=== PATIENT | female | born 1980 | race American Indian/Alaskan Native ===

== ENCOUNTER 2016-07-30 13:26 | Emergency (ER) | payer SELFPAY ==
[2016-07-30 14:34] LABS: Hematocrit 39.3 % (30.3-42.9); Hemoglobin 12.7 gm/dl (10.1-14.3); Mean Corpuscular HGB Conc 32 % (30-34); Mean Corpuscular Hemoglobin 30 pg (28-32); Mean Corpuscular Volume 91 fl (79-97); Platelet Count 323 K/mm3 (140-440); Red Cell Distribution Width 14.2 % (13.2-15.2); White Blood Count 11.7 K/mm3 (4.5-11.0)
[2016-07-30 14:42] LABS: Anion Gap 16 mmol/L; Blood Urea Nitrogen 14 mg/dL (7-17); Calcium 8.7 mg/dL (8.4-10.2); Carbon Dioxide 26 mmol/L (22-30); Chloride 99.2 mmol/L (98-107); Glucose 92 mg/dL (65-100); Potassium 3.2 mmol/L (3.6-5.0); Sodium 138 mmol/L (137-145)
[2016-07-30 15:26] LABS: Bacteria,Urine 1+ /HPF (Negative); Bilirubin,Urine NEG (Negative); Blood,Urine MOD (Negative); Ketones,Urine NEG (Negative); Leukocyte Esterase,Urine NEG (Negative); Mucus,Urine FEW /HPF; Nitrite,Urine NEG (Negative); Urobilinogen,Urine < 2.0 mg/dL (<2.0); WBC,Urine < 1.0 /HPF (0.0-6.0)
[2016-07-30] MEDS ORDERED: CATAPRES PO ONE (17:20)
[2016-07-30] MEDS ORDERED: FLEXERIL PO ONE (17:40)
[2016-07-30] MEDS ORDERED: TORADOL IM ONE (17:40)
[2016-07-30] MEDS ORDERED: NORCO 7.5/325 PO ONE (17:40)
--- NOTE | 2016-07-30 18:39 | Emergency Department Report ---
<FLOR RODRIGUEZ - Last Filed: 07/30/16 19:07> ED Lower Extremity HPI - General Chief Complaint: Extremity Injury, Lower Stated Complaint: R Knee Pain - Related Data Home Medications Medication Instructions Recorded Confirmed Last Taken Valtrex 1 tab PO QDAY PRN 05/23/14 05/23/14 05/22/14 10:30 Previous Rx's Medication Instructions Recorded Last Taken Type Hydrochlorothiazide 25 mg PO DAILY #30 tablet 05/23/14 Unknown Rx Ketorolac [Toradol] 10 mg PO Q6H PRN #20 tablet 07/30/16 Unknown Rx methOCARBAMOL [Robaxin TAB] 500 mg PO BID #20 tab 07/30/16 Unknown Rx Allergies Allergy/AdvReac Type Severity Reaction Status Date / Time No Known Allergies Allergy Verified 12/25/14 07:27 ED Review of Systems ROS: Stated complaint: R Knee Pain Other details as noted in HPI ED Past Medical Hx - Medications Home Medications: Home Medications Medication Instructions Recorded Confirmed Last Taken Type Hydrochlorothiazide 25 mg PO DAILY #30 tablet 05/23/14 Unknown Rx Valtrex 1 tab PO QDAY PRN 05/23/14 05/23/14 05/22/14 10:30 History Ketorolac [Toradol] 10 mg PO Q6H PRN #20 tablet 07/30/16 Unknown Rx methOCARBAMOL [Robaxin TAB] 500 mg PO BID #20 tab 07/30/16 Unknown Rx ED Course Vital Signs 07/30/16 07/30/16 07/30/16 14:06 18:05 19:14 Temperature 98.4 F Pulse Rate 92 H 121 H 82 Respiratory 18 Rate Blood Pressure 174/123 192/121 Blood Pressure 152/95 [Left] O2 Sat by Pulse 100 Oximetry ED Lower Extremity MDM - Lab Data Result diagrams: 07/30/16 14:12 07/30/16 14:12 Critical care attestation.: If time is entered above; I have spent that time in minutes in the direct care of this critically ill patient, excluding procedure time. ED Disposition Clinical Impression: Joint effusion of knee Disposition: DISCHARGED TO HOME OR SELFCARE Condition: Stable Instructions: Knee Effusion (ED) Prescriptions: Ketorolac [Toradol] 10 mg PO Q6H PRN #20 tablet PRN Reason: Pain methOCARBAMOL [Robaxin TAB] 500 mg PO BID #20 tab Referrals: PRIMARY CARE, [Primary Care Provider] - 3-5 Days EDWARD JANE MD [Staff Physician] - 3-5 Days ANTHONY SIDDIQUI MD [Staff Physician] - 3-5 Days <ANGELIQUE LOCK - Last Filed: 07/30/16 19:29> ED Lower Extremity HPI - General Source: patient Mode of arrival: Ambulatory Limitations: No Limitations - History of Present Illness Initial Comments: 36 year old female presents to ED with right knee pain x2-3 days. patient states she was exercising and began having knee pain. patient is stable, neurologically intact and in no acute distress. patient is ambulatory. pedal pulses intact bilaterally and normal sensory exam bilaterally in lower extremeties. MD Complaint: knee injury -: Sudden Injury: Knee: Right Severity: mild Improves With: rest Worsens With: movement Context: other (exercise) Associated Symptoms: snap/pop sensation, swelling, ambulatory. denies: numbness , tingling, unable to bear weight ED Review of Systems Constitutional: denies: chills, fever Eyes: denies: eye pain, eye discharge, vision change ENT: denies: ear pain, throat pain Respiratory: denies: cough, shortness of breath, wheezing Cardiovascular: denies: chest pain, palpitations Endocrine: no symptoms reported Gastrointestinal: denies: abdominal pain, nausea, diarrhea Genitourinary: denies: urgency, dysuria, discharge Musculoskeletal: joint swelling, arthralgia. denies: back pain Skin: denies: rash, lesions Neurological: denies: headache, weakness, paresthesias Psychiatric: denies: anxiety, depression Hematological/Lymphatic: denies: easy bleeding, easy bruising ED Past Medical Hx - Past Medical History Hx Hypertension: Yes Additional medical history: ectopic . HERPES - Surgical History Additional Surgical History: ectopic preg LEFT - Social History Smoking Status: Never Smoker Substance Use Type: Alcohol ED Physical Exam - General Limitations: No Limitations General appearance: alert, in no apparent distress - Head Head exam: Present: atraumatic, normocephalic - Eye Eye exam: Present: normal appearance - ENT ENT exam: Present: mucous membranes moist - Neck Neck exam: Present: normal inspection - Respiratory Respiratory exam: Present: normal lung sounds bilaterally. Absent: respiratory distress - Cardiovascular Cardiovascular Exam: Present: regular rate, normal rhythm. Absent: systolic murmur, diastolic murmur, rubs, gallop - GI/Abdominal GI/Abdominal exam: Present: soft, normal bowel sounds. Absent: tenderness - Extremities Exam Extremities exam: Present: normal inspection - Expanded Lower Extremity Exam Right Hip exam: Present: normal inspection Upper Leg exam: Present: normal inspection Knee exam: Present: tenderness, swelling, effusion. Absent: abrasion, laceration, ecchymosis, deformity, dislocation, erythema Lower Leg exam: Present: normal inspection Ankle exam: Present: normal inspection Foot/Toe exam: Present: normal inspection Neuro vascular tendon exam: Present: no vascular compromise. Absent: pulse deficit, abnormal cap refill, extremity cold to touch Gait: Positive: observed and limited by pain - Back Exam Back exam: Present: normal inspection, full ROM - Neurological Exam Neurological exam: Present: alert, oriented X3 - Psychiatric Psychiatric exam: Present: normal affect, normal mood - Skin Skin exam: Present: warm, dry, intact, normal color. Absent: rash ED Lower Extremity MDM - Lab Data Result diagrams: 07/30/16 14:12 07/30/16 14:12 - Radiology Data Radiology results: report reviewed xr knee right Suprapatellar joint effusion present per radiologist. - Medical Decision Making 36 year old female with knee pain (right) will be referred to ortho for joint effusion of right knee. patient is stable, neurologically intact and in no acute distress. patient has had pain medication and NSAIDS and muscle relaxer and has decreased pain. patient will be given knee brace and crutches for support. ED Disposition Is pt being admited?: No Does the pt Need Aspirin: No
--- NOTE | 2016-07-30 18:58 | XRay Report ---
FINAL REPORT EXAM: XR KNEE 3V RT HISTORY: pain/swelling in the right knee TECHNIQUE: AP, oblique, and lateral views of the right knee PRIORS: None. FINDINGS: No acute fracture or dislocation is seen. The soft tissues demonstrate a large suprapatellar joint effusion. Joint spaces are maintained and bony mineralization is normal. IMPRESSION: No acute bony abnormality of the right knee. Large joint effusion.
[2016-07-30 19:15] VITALS: BP 152/95
[2016-07-30] MEDS ORDERED: NORCO 5/325 PO ONE (19:42)
== END 2016-07-30 19:44 | disposition home or self-care (01) ==
LOC: ED 13:26
DX: M25.461 Effusion, right knee (principal); I10 Essential (primary) hypertension
CPT/HCPCS: 36415; 73562; 80048; 81001; 81025; 85027; 96372; 99284; J1885

== ENCOUNTER 2017-02-12 10:50 | Emergency (ER) | payer SELFPAY ==
[2017-02-12] MEDS ORDERED: CATAPRES PO ONE (11:28)
--- NOTE | 2017-02-12 11:35 | Emergency Department Report ---
Chief Complaint: Eye Problems Stated Complaint: PINK EYE Time Seen by Provider: 02/12/17 11:27 - HPI History of Present Illness: Patient is a 36-year-old female who was diagnosed to have blood pressure the past 3-4 years and due to her not having insurance is not able to keep up with her primary care to keep her medication field. Patient presents here for bilateral eye burning and itching 3 days. Patient states that every morning the past 3 days when she gets up she has some yellowish mucus covering her eyes and has to let them off with warm water. Patient states she wanted to come and have it looked after she looks actually might have pinkeye. Patient denies any trauma to the eye or any recent objects falling into her eyes. She denies fevers/chills/shortness of breath or chest pain/dizziness/headache/ blurred vision or any other symptoms. - ROS Review of Systems: As noted in HPI - Exam Vital Signs: Vital Signs 02/12/17 10:54 Temperature 98.3 F Pulse Rate 96 H Respiratory 20 Rate Blood Pressure 184/118 O2 Sat by Pulse 98 Oximetry Physical Exam: GENERAL: Alert and oriented x3, no apparent distress, Normal Gait, atraumatic. EYES: Sclerae are clear, white, non-erythematous, no erythema.. Pupils are equal , round, and reactive to light and accommodation. LUNGS: Symetrical with respiration, HEART: S1, S2 present, regular rate and rhythm without murmur, no rubs, no gallops. Non tender to palpation MSE screening note: Focused history and physical exam performed. Due to findings the following was ordered: ED Medical Decision Making - Medical Decision Making 36-year-old female, stable, no acute distress presents to reassess for conjunctivitis Blood pressure was elevated in triage due to patient's history of hypertension with no medication use. Clonidine 0.1 ordered CBC, CMP and troponin were ordered, if normal patient to be discharged home with blood pressure medication. Patient was sent to fast track to this in by provider. ED Disposition for MSE Condition: Stable
[2017-02-12 12:07] LABS: Basophils % (Auto) 0.5 % (0.0-1.8); Eosinophils % (Auto) 0.5 % (0.0-4.3); Hematocrit 36.2 % (30.3-42.9); Hemoglobin 12.2 gm/dl (10.1-14.3); Mean Corpuscular HGB Conc 34 % (30-34); Mean Corpuscular Hemoglobin 31 pg (28-32); Mean Corpuscular Volume 90 fl (79-97); Platelet Count 355 K/mm3 (140-440); Red Blood Count 4.01 M/mm3 (3.65-5.03); White Blood Count 8.6 K/mm3 (4.5-11.0)
[2017-02-12 12:15] LABS: Alanine Aminotransferase 10 units/L (7-56); Albumin 3.9 g/dL (3.9-5); Albumin/Globulin Ratio 1.3 %; Alkaline Phosphatase 93 units/L (35-129); Anion Gap 15 mmol/L; BUN/Creatinine Ratio 14; Blood Urea Nitrogen 13 mg/dL (7-17); Calcium 9.4 mg/dL (8.4-10.2); Carbon Dioxide 27 mmol/L (22-30); Chloride 102.7 mmol/L (98-107); Glucose 99 mg/dL (65-100); Potassium 4.1 mmol/L (3.6-5.0); Sodium 141 mmol/L (137-145); Total Protein 6.9 g/dL (6.3-8.2)
[2017-02-12] MEDS ORDERED: TESSALON PERLES PO ONE (14:20)
--- NOTE | 2017-02-12 14:28 | Emergency Department Report ---
- General Chief Complaint: Eye Problems Stated Complaint: PINK EYE Time Seen by Provider: 02/12/17 11:27 Source: patient Mode of arrival: Ambulatory Limitations: No Limitations - History of Present Illness Initial Comments: Patient is a 36-year-old female nontoxic, well nourished in appearance, no acute signs of distress presents to the ED with c/o of bilateral erythema, itching and drainage to bilateral eyes. Patient also stated she has a productive cough the past 3 weeks. Basically the cough is getting worse and now has green/yellow mucus production. Patient denies any trauma to the eye or recent objects found to her eyes. Patient denies any fever, eye pain, chills, short of breath, chest pain, dizziness, headache, blurred vision, visual changes , headache or stiff neck. Patient denies any allergies. Past medical history includes hypertension. Patient states she has not been taking her blood pressure medication for the past year. Patient states she does not remember or know the dose of her blood pressure medication. MD Complaint: cough, other (bilteral eye irritation) -: week(s) (3) Severity: mild Severity scale (0 -10): 8 Quality: burning Consistency: constant Improves With: nothing Worsens With: nothing Associated Symptoms: cough. denies: fever, chills, myalgias, diaphoresis, headache, rhinorrhea, nasal congestion, sore throat, stiff neck, shortness of breath, abdominal pain, nausea, vomiting, diarrhea, dysuria, rash, confusion, right sweats, weight loss, epistaxis, hoarseness, ear pain Treatments Prior to Arrival: none - Related Data Home Medications Medication Instructions Recorded Confirmed Last Taken Valtrex 1 tab PO QDAY PRN 05/23/14 05/23/14 05/22/14 10:30 Previous Rx's Medication Instructions Recorded Last Taken Type Hydrochlorothiazide 25 mg PO DAILY #30 tablet 05/23/14 Unknown Rx Ketorolac [Toradol] 10 mg PO Q6H PRN #20 tablet 07/30/16 Unknown Rx methOCARBAMOL [Robaxin TAB] 500 mg PO BID #20 tab 07/30/16 Unknown Rx Azithromycin [Zithromax Z-RISA] 250 mg PO DAILY #6 tablet 02/12/17 Unknown Rx Benzonatate [Tessalon Perle] 100 mg PO Q6H #20 capsule 02/12/17 Unknown Rx Polymyxin B Sulf/Trimethoprim 2 drops OU BID 7 Days drops 02/12/17 Unknown Rx [Polytrim Eye Drops] Allergies Allergy/AdvReac Type Severity Reaction Status Date / Time No Known Allergies Allergy Verified 12/25/14 07:27 ED Review of Systems ROS: Stated complaint: PINK EYE Other details as noted in HPI Constitutional: denies: chills, fever Eyes: eye discharge, other (eye redness and itching). denies: eye pain, vision change ENT: denies: ear pain, throat pain Respiratory: cough. denies: shortness of breath, wheezing Cardiovascular: denies: chest pain, palpitations Endocrine: no symptoms reported Gastrointestinal: denies: abdominal pain, nausea, diarrhea Genitourinary: denies: urgency, dysuria, discharge Musculoskeletal: denies: back pain, joint swelling, arthralgia Skin: denies: rash, lesions Neurological: denies: headache, weakness, paresthesias Psychiatric: denies: anxiety, depression Hematological/Lymphatic: denies: easy bleeding, easy bruising ED Past Medical Hx - Past Medical History Previous Medical History?: Yes Hx Hypertension: Yes (no meds) Additional medical history: ectopic . HERPES - Surgical History Past Surgical History?: Yes Additional Surgical History: ectopic preg LEFT - Social History Smoking Status: Never Smoker Substance Use Type: Alcohol - Medications Home Medications: Home Medications Medication Instructions Recorded Confirmed Last Taken Type Hydrochlorothiazide 25 mg PO DAILY #30 tablet 05/23/14 Unknown Rx Valtrex 1 tab PO QDAY PRN 05/23/14 05/23/14 05/22/14 10:30 History Ketorolac [Toradol] 10 mg PO Q6H PRN #20 tablet 07/30/16 Unknown Rx methOCARBAMOL [Robaxin TAB] 500 mg PO BID #20 tab 07/30/16 Unknown Rx Azithromycin [Zithromax Z-RISA] 250 mg PO DAILY #6 tablet 02/12/17 Unknown Rx Benzonatate [Tessalon Perle] 100 mg PO Q6H #20 capsule 02/12/17 Unknown Rx Polymyxin B Sulf/Trimethoprim 2 drops OU BID 7 Days drops 02/12/17 Unknown Rx [Polytrim Eye Drops] ED Physical Exam - General Limitations: No Limitations General appearance: alert, in no apparent distress - Head Head exam: Present: atraumatic, normocephalic - Eye Eye exam: Present: normal appearance, PERRL, EOMI, other (scleral erythema. Positive eyelids crusting). Absent: scleral icterus, conjunctival injection, nystagmus, periorbital swelling, periorbital tenderness Pupils: Present: normal accommodation - Expanded Eye Exam Expanded Eyelids: Normal Inspection: Right (bilateral with crusting) Pupils: Regular, Round: Bilateral, Reactive: Bilateral Sclera/Conjunctival: Normal Inspection: Bilateral, Exudate: Bilateral Visual acuity (R) = 20/: 15 Visual acuity (L) = 20/: 15 With correction: No IOP measured with: Tonopen (12 left/15 right) - ENT ENT exam: Present: normal exam, normal orophraynx, mucous membranes moist, TM's normal bilaterally, normal external ear exam - Neck Neck exam: Present: normal inspection, full ROM. Absent: tenderness, meningismus, lymphadenopathy, thyromegaly - Respiratory Respiratory exam: Present: normal lung sounds bilaterally. Absent: respiratory distress, wheezes, rales, rhonchi, stridor, chest wall tenderness, accessory muscle use, decreased breath sounds, prolonged expiratory - Cardiovascular Cardiovascular Exam: Present: regular rate, normal rhythm, normal heart sounds. Absent: irregular rhythm, systolic murmur, diastolic murmur, rubs, gallop - GI/Abdominal GI/Abdominal exam: Present: soft, normal bowel sounds. Absent: distended, tenderness, guarding, rebound, rigid, diminished bowel sounds - Rectal Rectal exam: Present: deferred - Extremities Exam Extremities exam: Present: normal inspection, full ROM, normal capillary refill. Absent: tenderness, pedal edema, joint swelling, calf tenderness - Back Exam Back exam: Present: normal inspection, full ROM. Absent: tenderness, CVA tenderness (R), CVA tenderness (L), muscle spasm, paraspinal tenderness, vertebral tenderness, rash noted - Neurological Exam Neurological exam: Present: alert, oriented X3, CN II-XII intact, normal gait, reflexes normal - Psychiatric Psychiatric exam: Present: normal affect, normal mood - Skin Skin exam: Present: warm, dry, intact, normal color. Absent: rash - Other Other exam information: Under Herman lamp, I used fluorescein and tetracaine to examine cornea for corneal abrasion or foreign body, negative for coronary abrasion or foreign body noted upon exam. ED Course Vital Signs 02/12/17 02/12/17 10:54 11:35 Temperature 98.3 F Pulse Rate 96 H 96 H Respiratory 20 Rate Blood Pressure 184/118 184/118 O2 Sat by Pulse 98 Oximetry - Reevaluation(s) Reevaluation #1: 02/12/17 14:29 Patient is speaking in full sentences with no signs of distress noted. ED Medical Decision Making - Lab Data Result diagrams: 02/12/17 11:35 02/12/17 11:35 - Medical Decision Making This is a 36-year-old female that presents with conjunctivitis and upper airway infection. Patient is stable and was examined by me. Chest x-ray has been obtained and dictated report by radiologist with normal exam. Visual acuity obtained within normal limits. Patient is notified of xray results with no questions noted. Patient received Tessalon Perles and ED. Patient is discharged with azithromycin and Polytrim. Patient was instructed Follow-up with a primary care doctor in 3-5 days or if symptoms worsen and continue return to emergency room as soon as possible. At time time of discharge, the patient does not seem toxic or ill in appearance. No acute signs of distress noted. Patient agrees to discharge treatment plan of care. No further questions noted by the patient. Patient received Catapres 0.1 mg in the ED prior to my interview. Blood pressure decreased. Critical care attestation.: If time is entered above; I have spent that time in minutes in the direct care of this critically ill patient, excluding procedure time. ED Disposition Clinical Impression: Hypertension Qualifiers: Hypertension type: unspecified Qualified Code(s): I10 - Essential (primary) hypertension Disposition: TO HOME OR SELFCARE Is pt being admited?: No Does the pt Need Aspirin: No Condition: Stable Instructions: Benzonatate (By mouth), Azithromycin (By mouth), Antibiotic Combinations (Into the eye), Conjunctivitis (ED), Upper Respiratory Infection ( ED), Hypertension (ED) Additional Instructions: Follow-up with a primary care doctor in 24 hours or if symptoms worsen and continue return to emergency room as soon as possible. Keep a daily diary of your blood pressure medications and present to your primary care doctor in 24 hours. Prescriptions: Azithromycin [Zithromax Z-RISA] 250 mg PO DAILY #6 tablet Benzonatate [Tessalon Perle] 100 mg PO Q6H #20 capsule Polymyxin B Sulf/Trimethoprim [Polytrim Eye Drops] 2 drops OU BID 7 Days drops Referrals: PRIMARY CAREMD [Primary Care Provider] - 3-5 Days BENJAMIN SHELDON MD [Staff Physician] - 3-5 Days [facility] [Outside] - 3-5 Days [facility] [Outside] - 3-5 Days Forms: Work/School Release Form(ED)
--- NOTE | 2017-02-12 14:54 | XRay Report ---
ROUTINE CHEST, TWO VIEWS: HISTORY: Cough. The trachea, heart, mediastinal contour, lung rubalcava and bony thorax are unremarkable. IMPRESSION: Unremarkable chest x-ray.
[2017-02-12] MEDS ORDERED: FUL-GLO OP ONE (15:00)
[2017-02-12] MEDS ORDERED: TETRACAINE 0.5% OU PRN (15:00)
[2017-02-12 15:02] VITALS: BP 163/100
== END 2017-02-12 15:10 | disposition home or self-care (01) ==
LOC: ED 10:50
DX: I10 Essential (primary) hypertension (principal)
CPT/HCPCS: 36415; 71020; 80053; 84484; 85025; 99284

== ENCOUNTER 2017-05-08 15:40 | Emergency (ER) | payer SELFPAY ==
[2017-05-08 17:08] VITALS: BP 181/119
[2017-05-08 18:46] LABS: Bacteria,Urine 1+ /HPF (Negative); Bilirubin,Urine NEG (Negative); Blood,Urine SM (Negative); Color,Urine Yellow (Yellow); Mucus,Urine FEW /HPF; Urobilinogen,Urine < 2.0 mg/dL (<2.0)
[2017-05-08 18:52] LABS: HCG Qualitative,Urine Negative (Negative)
== END 2017-05-08 20:33 | disposition left against medical advice (07) ==
LOC: ED 15:40
DX: M25.529 Pain in unspecified elbow (principal); Z53.21 Procedure and treatment not carried out due to patient leaving prior to being seen by health care provider
CPT/HCPCS: 81001; 81025

== ENCOUNTER 2017-05-08 22:00 | Emergency (ER) | payer SELFPAY ==
[2017-05-09] MEDS ORDERED: NORMODYNE ONE (00:13)
[2017-05-09] MEDS ORDERED: NORMODYNE PO ONE (00:17)
--- NOTE | 2017-05-09 00:35 | XRay Report ---
FINAL REPORT PROCEDURE: XR ELBOW 2V RT TECHNIQUE: RIGHT elbow radiographs, including AP and lateral views. HISTORY: painful elbow (RIGHT) COMPARISON: No prior studies are available for comparison. FINDINGS: Fracture (s) and/or Dislocation(s): None . Alignment: Normal . Joint space(s): Normal . Soft tissues: Normal . Bone mineralization: Normal . Foreign bodies: None . IMPRESSION: Normal Examination
[2017-05-09] MEDS ORDERED: TYLENOL PO ONE (04:36)
[2017-05-09] MEDS ORDERED: MOTRIN PO ONE (04:36)
[2017-05-09] MEDS ORDERED: TYLENOL ONE (04:37)
[2017-05-09] MEDS ORDERED: MOTRIN ONE (04:37)
--- NOTE | 2017-05-09 04:51 | Emergency Department Report ---
Upper Extremity - [facility] Chief Complaint: Extremity Injury, Upper Stated Complaint: RT ELBOW PAIN Time Seen by Provider: 05/09/17 04:36 Occurred When: >5 Days Mechanism: Hit with Object Severity: severe Symptoms: Yes Pain with Movement, Yes Limited Range of Movement (pain), No Deformity, No Numbness, No Weakness, No Swelling, No Bruising/Ecchymosis, No Laceration or Abrasion Other History: 37-year-old -[place] female comes in complaining of left elbow pain. Patient reports that she hit her elbow last week. 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 Patient reports that she's tried some [id number] pain relief which is a topical analgesic. She reports that was working but now it's not. He can any [id number] pain medication. ED Review of Systems ROS: Stated complaint: RT ELBOW PAIN Other details as noted in HPI Constitutional: denies: chills, fever Eyes: denies: eye pain, eye discharge, vision change ENT: denies: ear pain, throat pain Respiratory: denies: cough, shortness of breath, wheezing Cardiovascular: denies: chest pain, palpitations Endocrine: no symptoms reported Gastrointestinal: denies: abdominal pain, nausea, diarrhea Genitourinary: denies: urgency, dysuria, discharge Musculoskeletal: arthralgia (right elbow). denies: back pain, joint swelling Skin: denies: rash, lesions Neurological: denies: headache, weakness, paresthesias Psychiatric: denies: anxiety, depression Hematological/Lymphatic: denies: easy bleeding, easy bruising ED Past Medical Hx - Past Medical History Previous Medical History?: Yes Hx Hypertension: Yes (no meds) Additional medical history: ectopic . HERPES - Surgical History Past Surgical History?: Yes Additional Surgical History: ectopic preg LEFT - Social History Smoking Status: Never Smoker Substance Use Type: None - Medications Home Medications: Home Medications Medication Instructions Recorded Confirmed Last Taken Type Hydrochlorothiazide 25 mg PO DAILY #30 tablet 05/23/14 Unknown Rx Valtrex 1 tab PO QDAY PRN 05/23/14 05/23/14 05/22/14 10:30 History Ketorolac [Toradol] 10 mg PO Q6H PRN #20 tablet 07/30/16 Unknown Rx methOCARBAMOL [Robaxin TAB] 500 mg PO BID #20 tab 07/30/16 Unknown Rx Azithromycin [Zithromax Z-RISA] 250 mg PO DAILY #6 tablet 02/12/17 Unknown Rx Benzonatate [Tessalon Perle] 100 mg PO Q6H #20 capsule 02/12/17 Unknown Rx Polymyxin B Sulf/Trimethoprim 2 drops OU BID 7 Days drops 02/12/17 Unknown Rx [Polytrim Eye Drops] Ibuprofen 800 mg PO Q8H PRN #30 tablet 05/09/17 Unknown Rx Upper Extremity Exam - Exam General: Vital signs noted. No distress. Alert and acting appropriately. Head and Torso: No HEENT Abnormality Shoulder Exam: Yes Normal Range of Motion in Shoulder, No Shoulder Tenderness, No Clavicle Tenderness, No Shoulder Deformity, No AC Joint Tenderness Arm Exam: No Arm/Humerus Tenderness, No Arm Deformity Elbow: Yes Elbow Tenderness (lateral epicondyle), Yes Normal Range of Motion in Elbow, No Elbow Deformity Forearm: No Forearm Tenderness, No Forearm Deformity, No Pain with Pronation, No Pain with Supination Wrist: No Wrist Tenderness, No Normal ROM in Wrist, No Wrist Deformity, No Snuffbox Tenderness, No Pain with Axial Thumb Compression Hand: No Hand Tenderness, No Hand Deformity, No Digit Tenderness, No Normal ROM in Digit(s), No Digit(s) Deformity, No Tendon Dysfunction CMS Exam: Yes Normal Distal Pulses, No Broken Skin ED Course Vital Signs 05/08/17 05/08/17 05/09/17 23:55 23:59 00:21 Temperature 98 F 98 F Pulse Rate 73 73 73 Respiratory 16 18 Rate Blood Pressure 194/131 194/131 Blood Pressure 194/131 [Right] O2 Sat by Pulse 100 100 Oximetry ED Medical Decision Making - Radiology Data Right elbow 2 view impression: Normal examination - Medical Decision Making Patient has been evaluated by this provider fast track. I discussed the patient that her x-ray of her elbow was within normal limits. I also discussed the patient that she has lateral epicondyle tenderness which needs to be treated with ibuprofen or naproxen. As well as will groover and turner a picture of the elbow brace that will help with her pain. Patient verbalized understanding Critical care attestation.: If time is entered above; I have spent that time in minutes in the direct care of this critically ill patient, excluding procedure time. ED Disposition Clinical Impression: Lateral epicondylitis (tennis elbow) Qualifiers: Laterality: right Qualified Code(s): M77.11 - Lateral epicondylitis, right elbow Disposition: DC-01 TO HOME OR SELFCARE Is pt being admited?: No Does the pt Need Aspirin: No Condition: Stable Instructions: Tennis Elbow (ED) Additional Instructions: Please take ibuprofen as prescribed. You can apply ice to the elbow which will help with pain. Also used to get a elbow brace have printed one for you to see. Follow up with her primary care provider if symptoms persist or gets worse. Prescriptions: Ibuprofen 800 mg PO Q8H PRN #30 tablet PRN Reason: Pain Referrals: PRIMARY CARE, [Primary Care Provider] - 3-5 Days Forms: Work/School Release Form(ED)
[2017-05-09 06:26] VITALS: BP 159/99
== END 2017-05-09 05:00 | disposition home or self-care (01) ==
LOC: ED 22:00
DX: M77.12 Lateral epicondylitis, left elbow (principal); I10 Essential (primary) hypertension
CPT/HCPCS: 99283